=== PATIENT | female | born 1970 | race Caucasian/White ===

== ENCOUNTER 2018-01-23 15:56 | Day surgery (SDC) | payer BC ==
[2018-01-17 14:16] LABS: Basophils # (auto) 0 uL; Basophils % (auto) 0.6 % (0.0-2.0); Eosinophils # (auto) 0.2 uL; Eosinophils % (auto) 3.5 % (0.0-7.0); Hematocrit 40.9 % (36.0-46.0); Hemoglobin 13.7 g/dL (12.2-16.2); Lymphocytes # (auto) 1.5 uL; Lymphocytes % (auto) 26.6 % (10.0-50.0); Mean Corpuscular Hemoglobin 31.3 pg (28.0-32.0); Mean Corpuscular Hgb Conc. 33.5 g/dL (32.0-36.0); Mean Corpuscular Volume 93.4 fL (80.0-100.0); Monocytes # (auto) 0.6 uL; Monocytes % (auto) 11.2 % (0.0-12.0); Neutrophils # (auto) 3.2 uL; Neutrophils % (auto) 58.1 % (37.0-80.0); Nucleated Red Blood Cells % 0.1 %; Platelet Count (auto) 282 10^3/uL (140-450); Red Blood Cells 4.37 10^6/uL (4.0-5.20); Red Cell Distribution Width 12.2 % (11.8-14.3); White Blood Cell 5.5 10^3/uL (4.4-10.8)
[2018-01-17 14:42] LABS: BUN/Creatinine Ratio 9.1; Calcium 8.6 mg/dL (8.5-10.1); Potassium 3.8 mmol/L (3.5-5.1)
[2018-01-17 14:44] LABS: Partial Thromboplastin Time 30.8 sec (23.78-33.04); Prothrombin Time 10.7 sec (9.27-12.13)
[2018-01-17 15:06] LABS: Urine Bacteria FEW /hpf (None Seen); Urine Blood Negative /uL (Negative); Urine Specific Gravity 1.004 (1.001-1.035); Urine WBC 1 /hpf (0 - 5)
[~2018-01-23] VITALS: Ht 170.2 cm; Wt 83.9 kg
[~2018-01-23 15:56] MED LIST: THYR15TA PO; THYR90TA PO
[2018-01-23] MEDS ORDERED: ceFAZolin 1GM/50ML 50 ML IV ONE (20:28)
[2018-01-23] MEDS ORDERED: LACTATED RINGER'S 1,000 ML IV SCH (20:41)
[2018-01-23] MEDS ORDERED: fentaNYL CITRATE 100 MCG/2 ML VL ONE (20:45)
[2018-01-23] MEDS ORDERED: ONDANSETRON HCL 4 MG/2 ML VIAL IV PRN (20:45)
[2018-01-23] MEDS ORDERED: DEXAMETHASONE SOD PHOS 10MG/1ML VIAL INJ ONE (20:47)
[2018-01-23] MEDS ORDERED: ePHEDrine SULFATE 50 MG/ML AMP ONE (20:47)
[2018-01-23] MEDS ORDERED: METOCLOPRAMIDE HCL 5MG/ml INJ 2ml VIAL ONE (20:47)
[2018-01-23] MEDS ORDERED: ONDANSETRON HCL 4 MG/2 ML VIAL ONE (20:47)
[2018-01-23] MEDS ORDERED: diphenhdrAMINE HCL 50 MG/1 ML VL ONE (20:47)
[2018-01-23] MEDS ORDERED: PROPOFOL 10 MG/ML 20 ML IV ONE (20:47)
[2018-01-23] MEDS ORDERED: SODIUM CHLORIDE LOCK 10 ML ONE (20:49)
[2018-01-23] MEDS ORDERED: MIDAZOLAM HCL 1MG/1ML-2 ML VIAL ONE (20:50)
[2018-01-23] MEDS ORDERED: KETOROLAC TROMETH 30 MG/ML 1ML VIAL ONE (21:06)
[2018-01-23 22:31] VITALS: BP 118/74
== END 2018-01-23 22:31 | disposition home or self-care (01) ==
LOC: SUR 15:56
PROVIDERS: ATTEND Obstetrics & Gynecology
DX: N92.6 Irregular menstruation, unspecified (principal); N95.8 Other specified menopausal and perimenopausal disorders; E03.9 Hypothyroidism, unspecified; E66.9 Obesity, unspecified; Z79.899 Other long term (current) drug therapy
CPT/HCPCS: 36415; 58563; 80048; 81001; 81025; 84702; 85025; 85610; 85730; 86850; 86900; 86901; 87086; 88305; J0690; J1100; J1200; J1885; J2250; J2405; J2704; J2765; J3010

== ENCOUNTER 2019-12-10 08:01 | Inpatient (IN) | payer BC ==
[2019-12-08 09:48] LABS: Basophils # (auto) 0 10 ^3/uL (0-0.2); Basophils % (auto) 0.5 % (0.0-2.0); Eosinophils # (auto) 0.2 10 ^3/uL (0-0.8); Eosinophils % (auto) 3.9 % (0.0-7.0); Hematocrit 41.6 % (36.0-46.0); Hemoglobin 14.1 g/dL (12.2-16.2); Lymphocytes # (auto) 1.5 10 ^3/uL (0.4-5.4); Lymphocytes % (auto) 30.8 % (10.0-50.0); Mean Corpuscular Hemoglobin 32.4 pg (28.0-32.0); Mean Corpuscular Hgb Conc. 33.9 g/dL (32.0-36.0); Mean Corpuscular Volume 95.6 fL (80.0-100.0); Monocytes # (auto) 0.6 10 ^3/uL (0-1.3); Monocytes % (auto) 11.9 % (0.0-12.0); Neutrophils # (auto) 2.6 10 ^3/uL (1.6-8.6); Neutrophils % (auto) 52.9 % (37.0-80.0); Platelet Count (auto) 242 10^3/uL (140-450); Red Blood Cells 4.36 10^6/uL (4.0-5.20); Red Cell Distribution Width 12.6 % (11.8-14.3); White Blood Cell 4.9 10^3/uL (4.4-10.8)
[2019-12-08 09:49] LABS: Urine Bacteria FEW /hpf (None Seen); Urine Blood Negative /uL (Negative); Urine Specific Gravity 1.004 (1.001-1.035); Urine WBC 1 /hpf (0 - 5)
[2019-12-08 10:08] LABS: Albumin 3.8 g/dL (3.4-5.0); Calcium 8.7 mg/dL (8.5-10.1); Potassium 4.6 mmol/L (3.5-5.1)
[2019-12-08 10:13] LABS: Bilirubin, Total 0.5 mg/dL (0.2-1.0); Total Protein 7.6 g/dL (6.4-8.2)
[2019-12-08 10:21] LABS: INR 1.06 (0.9-1.15); Partial Thromboplastin Time 28.9 sec (23.64-32.05)
[~2019-12-10] VITALS: Ht 170.2 cm; Wt 86.0 kg
[2019-12-10] MEDS ORDERED: GLYCOPYRROLATE 0.2 MG/ML 1ML VIAL ONE (12:43)
[2019-12-10] MEDS ORDERED: fentaNYL CITRATE 5 ML ONE ×2 (12:43→14:38)
[2019-12-10] MEDS ORDERED: MIDAZOLAM HCL 1MG/1ML-2 ML VIAL ONE (12:43)
[2019-12-10] MEDS ORDERED: ONDANSETRON HCL 4 MG/2 ML VIAL ONE (12:43)
[2019-12-10] MEDS ORDERED: SODIUM CHLORIDE LOCK 10 ML ONE (12:43)
[2019-12-10] MEDS ORDERED: ROCURONIUM 10MG/ML 10ML VIAL IV ONE (12:43)
[2019-12-10] MEDS ORDERED: PROPOFOL 10 MG/ML 20 ML IV ONE (12:43)
[2019-12-10] MEDS ORDERED: NEOSTIGMINE 1 MG/ML INJ (10mg/10ML VIAL) ONE (12:43)
[2019-12-10] MEDS ORDERED: HYDROmorphone HCL 2 MG/ML VL ONE (12:43)
[2019-12-10] MEDS ORDERED: fentaNYL CITRATE 100 MCG/2 ML VL ONE (12:43)
[2019-12-10] MEDS ORDERED: fentaNYL CITRATE 100 MCG/2 ML VL IV PRN (12:45)
[2019-12-10] MEDS ORDERED: HYDROmorphone HCL 2 MG/ML VL IV PRN (12:45)
[2019-12-10] MEDS ORDERED: MORPHINE SULFATE 4 MG/ML SYR/VIAL IV PRN (12:45)
[2019-12-10] MEDS ORDERED: ONDANSETRON HCL 4 MG/2 ML VIAL IV PRN (12:45)
[2019-12-10] MEDS ORDERED: LIDOCAINE W/ EPINEPHRINE 1 % INJ 30ML ONE (12:50)
[2019-12-10] MEDS ORDERED: BUPIVACAINE 0.25% INJ 50ML VIAL ONE (12:51)
[2019-12-10] MEDS ORDERED: METHYLENE BLUE 0.5% 5MG/ML 10ml AMP IV ONE (12:51)
[2019-12-10] MEDS ORDERED: ceFAZolin 1GM/50ML 100 ML IV ONE (13:02)
[2019-12-10] MEDS ORDERED: ACETAMINOPHEN 500 MG TAB PO PRN (13:15)
[2019-12-10] MEDS ORDERED: NITROGLYCERIN 0.4 MG SL TAB SL PRN (13:15)
[2019-12-10] MEDS ORDERED: ceFAZolin 1GM/50ML 50 ML IV ONE (13:15)
[2019-12-10] MEDS ORDERED: HYDROcodone-ACET 5/325MG TAB PO PRN (13:30)
[2019-12-10] MEDS ORDERED: DOCU100T15 PO (18:40)
[2019-12-10] MEDS ORDERED: CIP500T PO (18:40)
[2019-12-10] MEDS ORDERED: HYDR1TAB97 PO (18:42)
[2019-12-10] MEDS ORDERED: PHEN-1044 PO (18:42)
[2019-12-10] MEDS: SODIUM CHLORIDE 0.9% 1,000 ML IV SCH (20:04)
[2019-12-10] MEDS: ONDANSETRON HCL 4 MG/2 ML VIAL IV PRN (20:07)
[2019-12-10] MEDS: MORPHINE SULF INJ 2 MG/ML SYRINGE 1ML IV PRN (20:09)
[2019-12-10 22:45] VITALS: BP 119/68
[2019-12-11] MEDS: MORPHINE SULF INJ 2 MG/ML SYRINGE 1ML IV PRN (02:37)
[2019-12-11] MEDS: ONDANSETRON HCL 4 MG/2 ML VIAL IV PRN ×2 (02:37→08:37)
[2019-12-11] MEDS: MORPHINE SULFATE 4 MG/ML SYR/VIAL IV PRN ×2 (02:37→08:37)
[2019-12-11] MEDS: SODIUM CHLORIDE 0.9% 1,000 ML IV SCH ×2 (02:43→05:14)
[2019-12-11 05:00] VITALS: BP 122/64
[2019-12-11 06:05] LABS: Basophils # (auto) 0 10 ^3/uL (0-0.2); Basophils % (auto) 0.2 % (0.0-2.0); Eosinophils # (auto) 0 10 ^3/uL (0-0.8); Hematocrit 36.4 % (36.0-46.0); Hemoglobin 12.5 g/dL (12.2-16.2); Lymphocytes # (auto) 0.6 10 ^3/uL (0.4-5.4); Lymphocytes % (auto) 4.6 % (10.0-50.0); Mean Corpuscular Hemoglobin 32.4 pg (28.0-32.0); Mean Corpuscular Hgb Conc. 34.3 g/dL (32.0-36.0); Mean Corpuscular Volume 94.7 fL (80.0-100.0); Monocytes # (auto) 0.8 10 ^3/uL (0-1.3); Monocytes % (auto) 6.2 % (0.0-12.0); Neutrophils # (auto) 11.3 10 ^3/uL (1.6-8.6); Platelet Count (auto) 198 10^3/uL (140-450); Red Blood Cells 3.84 10^6/uL (4.0-5.20); Red Cell Distribution Width 12.3 % (11.8-14.3); White Blood Cell 12.7 10^3/uL (4.4-10.8)
[2019-12-11 09:00] VITALS: BP 116/69
[2019-12-11 10:14] VITALS: BP 116/69
[2019-12-11 12:40] VITALS: BP 103/60
== END 2019-12-11 16:30 | disposition home or self-care (01) | DRG 743 ==
LOC: OVERFLOW 11:59 → EDSTATUS 12:45 → WEST WING 17:24
PROVIDERS: ADMIT Obstetrics & Gynecology; ATTEND Obstetrics & Gynecology
PROC: 0UT24ZZ Resection of Bilateral Ovaries, Percutaneous Endoscopic Approach (ICD-10-PCS; 2019-12-10)
PROC: 0UT74ZZ Resection of Bilateral Fallopian Tubes, Percutaneous Endoscopic Approach (ICD-10-PCS; 2019-12-10)
PROC: 0UNF4ZZ Release Cul-de-sac, Percutaneous Endoscopic Approach (ICD-10-PCS; 2019-12-10)
PROC: 0DNW4ZZ Release Peritoneum, Percutaneous Endoscopic Approach (ICD-10-PCS; 2019-12-10)
PROC: 8E0W4CZ Robotic Assisted Procedure of Trunk Region, Percutaneous Endoscopic Approach (ICD-10-PCS; 2019-12-10)
PROC: 0UT94ZL Resection of Uterus, Supracervical, Percutaneous Endoscopic Approach (ICD-10-PCS; principal; 2019-12-10 12:56)
DX: N81.2 Incomplete uterovaginal prolapse (principal); N73.6 Female pelvic peritoneal adhesions (postinfective); E03.9 Hypothyroidism, unspecified; N94.89 Other specified conditions associated with female genital organs and menstrual cycle; N92.5 Other specified irregular menstruation; Z20.828 Contact with and (suspected) exposure to other viral communicable diseases
CPT/HCPCS: 36415; 80053; 81001; 84702; 85025; 85610; 85730; 86850; 86900; 86901; 87081; 87086; 87635; C1765; G0378; J0690; J2250; J2405; J2704; J3490